=== PATIENT | male | born 1955 | race Caucasian/White ===

== ENCOUNTER 2018-09-28 05:02 | Inpatient (IN) | payer OTHER ==
[2018-09-28] MEDS ORDERED: DILTIAZEM DRIP BOLUS FROM BAG 1 MG SOLN IV ONE (05:19)
[2018-09-28] MEDS: DILTIAZEM 50 MG in SODIUM CHLORIDE 0.9% 40 ML IV SCH ×3 (05:32→20:36)
[2018-09-28] MEDS ORDERED: SODIUM CHLORIDE 0.9% 1,000 ML IV ONE ×2 (05:34→05:44)
[2018-09-28 05:39] LABS: Basophils % (A) 0 %; Eosinophils # (A) 0.1 k/uL (0-0.7); Eosinophils % (A) 3 %; HCT 51.2 % (39.0-53.0); HGB 17.1 gm/dL (13.0-17.5); Lymphocytes # (A) 1.7 k/uL (1.0-4.8); Lymphocytes % (A) 43 %; MCH 30.3 pg (25.0-35.0); MCHC 33.4 g/dL (31.0-37.0); MCV 90.7 fL (80.0-100.0); Mean Platelet Volume 7.3; Monocytes # (A) 0.4 k/uL (0-1.0); Monocytes % (A) 9 %; Neutrophils # (A) 1.7 k/uL (1.3-7.7); Neutrophils % (A) 41 %; Platelet Count 159 k/uL (150-450); RBC 5.64 m/uL (4.30-5.90); RDW 12.9 % (11.5-15.5); WBC 4.1 k/uL (3.8-10.6)
--- NOTE | 2018-09-28 05:44 | ED ---
Arrhythmia/Palpitations HPI - General Chief Complaint: Arrhythmia/Palpitations Stated Complaint: palpitations,dizziness Time Seen by Provider: 09/28/18 05:19 Source: patient Mode of arrival: wheelchair Limitations: no limitations - History of Present Illness Initial Comments: This patient is 63-year-old man who presents to be evaluated for palpitations. The patient states that he had been not feeling like his usual self for the past 3 days. He states he had been coughing. He also was not feeling well so he hadn't really had much to eat or drink since that time . Tonight after coughing episode he noticed that his heart had started racing. Patient denies chest pain, diaphoresis nausea or vomiting. Denies history of arrhythmia. MD Complaint: "heart racing", palpitations Onset/Timin -: hour(s) Context: other (During coughing episode) Associated Symptoms: shortness of breath - Related Data Home Medications Medication Instructions Recorded Confirmed Aspirin EC [Ecotrin Low Dose] 81 mg PO DAILY 09/28/18 09/28/18 Aspirin EC [Ecotrin] 650 mg PO DAILY PRN 09/28/18 09/28/18 Allergies Allergy/AdvReac Type Severity Reaction Status Date / Time bee venom protein (honey bee) Allergy Swelling Verified 09/28/18 07:04 Review of Systems ROS Statement: Those systems with pertinent positive or pertinent negative responses have been documented in the HPI. ROS Other: All systems not noted in ROS Statement are negative. Constitutional: Reports: weakness. Denies: fever, chills Respiratory: Reports: cough, dyspnea. Denies: wheezes, hemoptysis Cardiovascular: Reports: palpitations. Denies: chest pain, edema, syncope Gastrointestinal: Denies: abdominal pain, nausea, vomiting Genitourinary: Denies: dysuria Musculoskeletal: Denies: back pain Skin: Denies: rash Neurological: Denies: headache, weakness, numbness Past Medical History Past Medical History: No Reported History History of Any Multi-Drug Resistant Organisms: None Reported Past Surgical History: Orthopedic Surgery Past Psychological History: No Psychological Hx Reported Smoking Status: Never smoker Past Alcohol Use History: None Reported Past Drug Use History: None Reported General Exam Limitations: no limitations General appearance: alert, in no apparent distress Head exam: Present: atraumatic, normocephalic Eye exam: Present: normal appearance ENT exam: Present: mucous membranes dry Neck exam: Present: normal inspection, full ROM Respiratory exam: Present: normal lung sounds bilaterally. Absent: respiratory distress, wheezes, rales, rhonchi, stridor Cardiovascular Exam: Present: tachycardia, irregular rhythm, normal heart sounds. Absent: systolic murmur, diastolic murmur, rubs, gallop GI/Abdominal exam: Present: soft. Absent: distended, tenderness, guarding, rebound, rigid, mass Extremities exam: Present: normal inspection, normal capillary refill. Absent: pedal edema, calf tenderness Back exam: Present: normal inspection. Absent: CVA tenderness (R), CVA tenderness (L) Neurological exam: Present: alert Skin exam: Present: warm, dry, intact, normal color. Absent: rash Course Vital Signs 09/28/18 09/28/18 09/28/18 05:05 05:13 05:20 Temperature 98.5 F Pulse Rate 57 L 156 H Respiratory 18 30 H 24 Rate Blood Pressure 80/55 88/69 O2 Sat by Pulse 96 89 L Oximetry 09/28/18 09/28/18 09/28/18 05:40 06:00 06:10 Temperature Pulse Rate 105 H 101 H 87 Respiratory 22 18 18 Rate Blood Pressure 95/63 102/75 110/81 O2 Sat by Pulse 97 96 96 Oximetry 09/28/18 09/28/18 09/28/18 06:53 07:00 07:30 Temperature Pulse Rate 118 H 118 H 106 H Respiratory 20 18 18 Rate Blood Pressure 103/65 103/65 111/79 O2 Sat by Pulse 96 93 L 96 Oximetry 09/28/18 09/28/18 09/28/18 08:00 08:30 09:00 Temperature Pulse Rate 104 H 144 H 70 Respiratory 19 18 18 Rate Blood Pressure 103/85 104/65 111/88 O2 Sat by Pulse 93 L 94 L 96 Oximetry 09/28/18 09:30 Temperature Pulse Rate 72 Respiratory 19 Rate Blood Pressure 108/73 O2 Sat by Pulse 96 Oximetry EKG Findings - EKG Results: EKG: interpreted by ERMD, normal axis, normal QRS, normal ST/T EKG shows: atrial fibrillation (Rate approximately 158 bpm) Medical Decision Making - Medical Decision Making Patient's 63-year-old man presenting for evaluation of palpitations and dyspnea , found to have what appears to be new onset of atrial fibrillation and a rapid ventricular rate. Patient started on IV fluids and Cardizem. Patient be admitted for cardiology evaluation. His symptoms have improved. - Lab Data Result diagrams: 09/28/18 05:20 09/28/18 05:20 Lab Results 09/28/18 09/28/18 09/28/18 Range/Units 05:20 05:20 05:20 WBC 4.1 (3.8-10.6) k/uL RBC 5.64 (4.30-5.90) m/uL Hgb 17.1 (13.0-17.5) gm/dL Hct 51.2 (39.0-53.0) % MCV 90.7 (80.0-100.0) fL MCH 30.3 (25.0-35.0) pg MCHC 33.4 (31.0-37.0) g/dL RDW 12.9 (11.5-15.5) % Plt Count 159 (150-450) k/uL Neutrophils % 41 % Lymphocytes % 43 % Monocytes % 9 % Eosinophils % 3 % Basophils % 0 % Neutrophils # 1.7 (1.3-7.7) k/uL Lymphocytes # 1.7 (1.0-4.8) k/uL Monocytes # 0.4 (0-1.0) k/uL Eosinophils # 0.1 (0-0.7) k/uL Basophils # 0.0 (0-0.2) k/uL PT (9.0-12.0) sec INR (<1.2) APTT (22.0-30.0) sec Sodium 139 (137-145) mmol/L Potassium 3.9 (3.5-5.1) mmol/L Chloride 99 (98-107) mmol/L Carbon Dioxide 24 (22-30) mmol/L Anion Gap 16 mmol/L BUN 21 H (9-20) mg/dL Creatinine 1.79 H (0.66-1.25) mg/dL Est GFR (CKD-EPI)AfAm 46 (>60 ml/min/1.73 sqM) Est GFR (CKD-EPI)NonAf 40 (>60 ml/min/1.73 sqM) Glucose 124 H (74-99) mg/dL Calcium 9.3 (8.4-10.2) mg/dL Magnesium 2.2 (1.6-2.3) mg/dL Total Bilirubin 0.5 (0.2-1.3) mg/dL AST 57 (17-59) U/L ALT 57 (21-72) U/L Alkaline Phosphatase 88 (38-126) U/L Total Creatine Kinase 382 H (55-170) U/L CK-MB (CK-2) 1.0 (0.0-2.4) ng/mL CK-MB (CK-2) Rel Index 0.3 Troponin I <0.012 (0.000-0.034) ng/mL Total Protein 8.2 (6.3-8.2) g/dL Albumin 4.7 (3.5-5.0) g/dL TSH 8.700 H (0.465-4.680) mIU/L 09/28/18 Range/Units 05:20 WBC (3.8-10.6) k/uL RBC (4.30-5.90) m/uL Hgb (13.0-17.5) gm/dL Hct (39.0-53.0) % MCV (80.0-100.0) fL MCH (25.0-35.0) pg MCHC (31.0-37.0) g/dL RDW (11.5-15.5) % Plt Count (150-450) k/uL Neutrophils % % Lymphocytes % % Monocytes % % Eosinophils % % Basophils % % Neutrophils # (1.3-7.7) k/uL Lymphocytes # (1.0-4.8) k/uL Monocytes # (0-1.0) k/uL Eosinophils # (0-0.7) k/uL Basophils # (0-0.2) k/uL PT 9.8 (9.0-12.0) sec INR 0.9 (<1.2) APTT 26.5 (22.0-30.0) sec Sodium (137-145) mmol/L Potassium (3.5-5.1) mmol/L Chloride (98-107) mmol/L Carbon Dioxide (22-30) mmol/L Anion Gap mmol/L BUN (9-20) mg/dL Creatinine (0.66-1.25) mg/dL Est GFR (CKD-EPI)AfAm (>60 ml/min/1.73 sqM) Est GFR (CKD-EPI)NonAf (>60 ml/min/1.73 sqM) Glucose (74-99) mg/dL Calcium (8.4-10.2) mg/dL Magnesium (1.6-2.3) mg/dL Total Bilirubin (0.2-1.3) mg/dL AST (17-59) U/L ALT (21-72) U/L Alkaline Phosphatase (38-126) U/L Total Creatine Kinase (55-170) U/L CK-MB (CK-2) (0.0-2.4) ng/mL CK-MB (CK-2) Rel Index Troponin I (0.000-0.034) ng/mL Total Protein (6.3-8.2) g/dL Albumin (3.5-5.0) g/dL TSH (0.465-4.680) mIU/L Critical Care Time Critical Care Time: Yes (40 minutes) Disposition Clinical Impression: Atrial fibrillation, Acute kidney injury Disposition: ADMITTED IP TO THIS HOSP Condition: Fair
[2018-09-28 05:48] LABS: INR 0.9 (<1.2); Partial Thromboplastin Time 26.5 sec (22.0-30.0); Prothrombin Time 9.8 sec (9.0-12.0)
[2018-09-28 05:52] LABS: Albumin 4.7 g/dL (3.5-5.0); Calcium 9.3 mg/dL (8.4-10.2); Magnesium 2.2 mg/dL (1.6-2.3); Potassium 3.9 mmol/L (3.5-5.1); Total Bilirubin 0.5 mg/dL (0.2-1.3); Total Protein 8.2 g/dL (6.3-8.2)
[2018-09-28 05:58] LABS: Creatine Kinase 382 U/L (55-170)
[2018-09-28 06:11] LABS: Troponin I <0.012 ng/mL (0.000-0.034)
--- NOTE | 2018-09-28 06:17 | XR ---
INDICATION: Dysrhythmia COMPARISON: None FINDINGS: Single frontal view demonstrates a normal cardiomediastinal silhouette and normal pulmonary vascularity. There are mild left basilar opacities suggesting subsegmental atelectasis. There is no pleural effusion or pneumothorax. Regional skeleton appears intact. IMPRESSION: Mild left basilar subsegmental atelectasis.
[2018-09-28] MEDS ORDERED: ENOXAPARIN 100 MG/ML SYRINGE SQ STA (06:56)
[2018-09-28] MEDS ORDERED: NITROGLYCERIN SL TABS 0.4 MG TAB SUBLINGUAL PRN (06:56)
[2018-09-28] MEDS: SODIUM CHLORIDE 0.9% 1,000 ML IV SCH ×2 (07:26→16:59)
[2018-09-28 12:39] LABS: Creatine Kinase MB 1.1 ng/mL (0.0-2.4)
[2018-09-28 12:43] LABS: Troponin I 0.049 ng/mL (0.000-0.034)
--- NOTE | 2018-09-28 15:33 | P.HPIM ---
History of Present Illness This is a pleasant 63 years old male with no significant past medical history who presents because of palpitation, patient states that he is having cough with some dark milky phlegm with associated with loss of appetite for the last 4 -5 days. Also he has been feeling dizzy whenever he stands up it's like presyncope and about to fall down due to his lightheadedness. He has urine output and normal bowel movement today. On admission his EKG showing atrial fibrillation with rapid ventricular rate at 158 BPM, his CBC was unremarkable however his creatinine was elevated at 1.79, Review of Systems CONSTITUTIONAL: No fever, no malaise, no fatigue. HEENT: No recent visual problems or hearing problems. Denied any sore throat. CARDIOVASCULAR: No orthopnea, PND, no palpitations, no syncope. PULMONARY: No shortness of breath, no cough, no hemoptysis. GASTROINTESTINAL: No diarrhea, no nausea, no vomiting, no abdominal pain. Normoactive bowel sounds. NEUROLOGICAL: No headaches, no weakness, no numbness. HEMATOLOGICAL: Denies any bleeding or petechiae. GENITOURINARY: Denies any burning micturition, frequency, or urgency. MUSCULOSKELETAL/RHEUMATOLOGICAL: Denies any joint pain, swelling, or any muscle pain. ENDOCRINE: Denies any polyuria or polydipsia. Past Medical History Past Medical History: No Reported History History of Any Multi-Drug Resistant Organisms: None Reported Past Surgical History: Orthopedic Surgery Past Psychological History: No Psychological Hx Reported Smoking Status: Never smoker Past Alcohol Use History: None Reported Past Drug Use History: None Reported Medications and Allergies Home Medications Medication Instructions Recorded Confirmed Type Aspirin EC [Ecotrin Low Dose] 81 mg PO DAILY 09/28/18 09/28/18 History Aspirin EC [Ecotrin] 650 mg PO DAILY PRN 09/28/18 09/28/18 History Allergies Allergy/AdvReac Type Severity Reaction Status Date / Time bee venom protein (honey bee) Allergy Swelling Verified 09/28/18 07:04 Physical Exam Vitals: Vital Signs Temp Pulse Resp BP Pulse Ox 09/28/18 14:21 99.4 F 74 14 111/71 100 09/28/18 09:30 72 19 108/73 96 09/28/18 09:00 70 18 111/88 96 09/28/18 08:30 144 H 18 104/65 94 L 09/28/18 08:00 104 H 19 103/85 93 L 09/28/18 07:30 106 H 18 111/79 96 09/28/18 07:00 118 H 18 103/65 93 L 09/28/18 06:53 118 H 20 103/65 96 09/28/18 06:10 87 18 110/81 96 09/28/18 06:00 101 H 18 102/75 96 09/28/18 05:40 105 H 22 95/63 97 09/28/18 05:20 156 H 24 88/69 09/28/18 05:13 30 H 89 L 09/28/18 05:05 98.5 F 57 L 18 80/55 96 Intake and Output 09/28/18 09/28/18 09/28/18 06:59 14:59 22:59 Other: Weight 95.254 kg GENERAL: The patient is alert and oriented x3, not in any acute distress. Well developed, well nourished. HEENT: Pupils are round and equally reacting to light. EOMI. No scleral icterus. No conjunctival pallor. Normocephalic, atraumatic. No pharyngeal erythema. No thyromegaly. CARDIOVASCULAR: S1 and S2 present. No murmurs, rubs, or gallops. PULMONARY: Chest is clear to auscultation, no wheezing or crackles. ABDOMEN: Soft, nontender, nondistended, normoactive bowel sounds. No palpable organomegaly. MUSCULOSKELETAL: No joint swelling or deformity. EXTREMITIES: No cyanosis, clubbing, or pedal edema. NEUROLOGICAL: Gross neurological examination did not reveal any focal deficits. SKIN: No rashes. Results CBC & Chem 7: 09/28/18 05:20 09/28/18 05:20 Labs: Abnormal Lab Results - Last 24 Hours (Table) 09/28/18 09/28/18 09/28/18 Range/Units 05:20 05:20 05:20 BUN 21 H (9-20) mg/dL Creatinine 1.79 H (0.66-1.25) mg/dL Glucose 124 H (74-99) mg/dL Total Creatine Kinase 382 H (55-170) U/L Troponin I (0.000-0.034) ng/mL TSH 8.700 H 8.530 H (0.465-4.680) mIU/L 09/28/18 Range/Units 11:05 BUN (9-20) mg/dL Creatinine (0.66-1.25) mg/dL Glucose (74-99) mg/dL Total Creatine Kinase 420 H (55-170) U/L Troponin I 0.049 H* (0.000-0.034) ng/mL TSH (0.465-4.680) mIU/L Assessment and Plan Assessment: Atrial fibrillation's with a rapid ventricular rate Acute kidney injury unknown baseline Upper respiratory tract infection. pre-Syncope/dizziness, mostly related to above Plan: This is a pleasant 63 years old male who presents because of atrial fibrillation and acute kidney injury. Will call cardiology consult and continue with IV fluids. Check influenza swab. Labs and medication were reviewed.. Continue same treatment. Continue with symptomatic treatment. Resume home medication. Monitor lytes and vitals. DVT and GI prophylaxis. Further recommendations of the clinical course of the patient DVT prophylaxis: Subcutaneous heparin GI Prophylaxis: Pepcid PT/OT: Pending Prognosis is guarded
[2018-09-28 19:59] LABS: Creatine Kinase MB 0.6 ng/mL (0.0-2.4); Troponin I 0.065 ng/mL (0.000-0.034)
[2018-09-28] MEDS: OSELTAMIVIR 60 MG/10 ML ORAL SYRINGE PO SCH (21:49)
[2018-09-28] MEDS ORDERED: ACETAMINOPHEN TAB 325 MG TAB PO PRN (22:47)
[2018-09-29] MEDS: SODIUM CHLORIDE 0.9% 1,000 ML IV SCH ×2 (04:00→17:31)
[2018-09-29 07:45] LABS: Basophils % (A) 1 %; Eosinophils # (A) 0.1 k/uL (0-0.7); Eosinophils % (A) 2 %; HCT 40.9 % (39.0-53.0); Lymphocytes # (A) 1.5 k/uL (1.0-4.8); Lymphocytes % (A) 42 %; MCH 29.7 pg (25.0-35.0); MCHC 32.6 g/dL (31.0-37.0); MCV 91.1 fL (80.0-100.0); Mean Platelet Volume 6.7; Monocytes # (A) 0.3 k/uL (0-1.0); Monocytes % (A) 8 %; Neutrophils # (A) 1.6 k/uL (1.3-7.7); Neutrophils % (A) 45 %; Platelet Count 130 k/uL (150-450); RBC 4.48 m/uL (4.30-5.90); RDW 12.9 % (11.5-15.5); WBC 3.6 k/uL (3.8-10.6)
[2018-09-29 07:55] LABS: Anion Gap 7 mmol/L; Blood Urea Nitrogen 12 mg/dL (9-20); Carbon Dioxide 23 mmol/L (22-30); Chloride 109 mmol/L (98-107); Cholesterol 172 mg/dL (<200); Glucose 100 mg/dL (74-99); HDL Cholesterol 25 mg/dL (40-60); LDL Cholesterol,Calculated 123 mg/dL (0-99); Sodium 139 mmol/L (137-145); Triglycerides 120 mg/dL (<150)
[2018-09-29 07:58] LABS: HGB 13.3 gm/dL (13.0-17.5)
[2018-09-29] MEDS: ASPIRIN 325 MG TAB PO SCH (08:12)
--- NOTE | 2018-09-29 09:42 | P.CONS ---
History of Present Illness - Reason for Consult Consult date: 09/29/18 Positive influenza A - History of Present Illness This is a 63-year-old male gives history of having onset of severe cough on Wednesday. He states he was exposed to his daughter at [place] who was treated for influenza. He states that his cough continued to worsen and yesterday he developed palpitations. He felt like when he stood up he was going to pass out. He denies having any significant muscle aches. Patient came into [facility] emergency center was found to have a temperature max of 101.5, hypotension and pulse ox of 89%. Influenza A testing was positive , white count 4.1, BUN 21 creatinine 1.79. Troponins were 0.012, 0.049 and 0.065. TSH 8.530. EKG was new onset of atrial fibrillation RVR. Chest x-ray showed mild left basilar subsegmental atelectasis. Patient was admitted to the selective care unit and consult was also admitted for cardiology. Patient was started on a Cardizem drip and he is now in a sinus rhythm. Patient states his coughing has improved this morning but he didn't cough throughout the night. He denies any palpitations at this time. He has had decreased appetite and not had a full meal since Wednesday. He states he is also not been drinking very much at home. Patient states that he took his to the clinic on Wednesday for same symptoms and she was given antibiotics, medication for dizziness and a nasal spray. She apparently was not tested for influenza and did not receive antiviral medication. Review of Systems All systems: negative Constitutional: Reports fatigue, Reports lethargy, Reports malaise, Reports poor appetite, Reports weakness, Denies chills, Denies fever Eyes: denies blurred vision, denies pain Ears, nose, mouth and throat: Reports vertigo, Denies dental pain, Denies headache, Denies mouth pain, Denies nasal congestion, Denies sore throat Cardiovascular: Reports lightheadedness, Denies chest pain, Denies shortness of breath, Denies syncope Respiratory: Reports cough, Reports cough with sputum, Reports dyspnea, Denies excessive sputum, Denies hemoptysis, Denies home oxygen, Denies wheezing Gastrointestinal: Reports loss of appetite, Denies abdominal pain, Denies diarrhea, Denies nausea, Denies vomiting Genitourinary: Denies dysuria, Denies urinary frequency Musculoskeletal: Denies frequent falls, Denies gait dysfunction, Denies myalgias Integumentary: Denies pruritus, Denies rash, Denies wounds Neurological: Denies change in mentation, Denies confusion, Denies gait dysfunction, Denies numbness, Denies weakness Psychiatric: Denies anxiety, Denies depression Endocrine: Denies fatigue, Denies weight change Past Medical History Past Medical History: No Reported History Additional Past Medical History / Comment(s): palpatations, past kideny stones, gout History of Any Multi-Drug Resistant Organisms: None Reported Past Surgical History: Orthopedic Surgery Additional Past Surgical History / Comment(s): rt knee arthroscopy, colonoscopy Past Anesthesia/Blood Transfusion Reactions: Motion Sickness Additional Past Anesthesia/Blood Transfusion Reaction / Comm: pt stated has never recieved any blood" Smoking Status: Never smoker Additional Past Alcohol Use History / Comment(s): Patient has no history of tobacco use. He denies any marijuana, street drug or alcohol use. He lives at home with his . He is retired [employer]. - Past Family History Mother Family Medical History: Diabetes Mellitus Father Additional Family Medical History / Comment(s): from black lung disease Medications and Allergies Home Medications Medication Instructions Recorded Confirmed Type Aspirin EC [Ecotrin Low Dose] 81 mg PO DAILY 09/28/18 09/28/18 History Aspirin EC [Ecotrin] 650 mg PO DAILY PRN 09/28/18 09/28/18 History Allergies Allergy/AdvReac Type Severity Reaction Status Date / Time bee venom protein (honey bee) Allergy Swelling Verified 09/28/18 07:04 Physical Exam Vitals: Vital Signs Temp Pulse Pulse Resp BP BP Pulse Ox 09/29/18 06:55 98.5 F 09/29/18 04:00 101.5 F H 78 18 107/55 93 L 09/29/18 03:39 18 09/29/18 00:00 71 18 09/28/18 23:21 99.8 F H 71 18 124/62 93 L 09/28/18 20:19 99.7 F H 73 18 103/59 95 09/28/18 19:00 77 20 117/68 09/28/18 18:00 77 20 132/59 97 09/28/18 17:00 70 20 101/63 97 09/28/18 16:00 19 110/63 95 09/28/18 15:00 78 19 109/69 09/28/18 14:21 99.4 F 74 14 111/71 100 09/28/18 14:00 72 20 114/68 95 09/28/18 13:01 73 15 106/70 95 09/28/18 12:00 74 20 118/73 97 09/28/18 10:00 80 20 100/62 09/28/18 09:30 72 19 108/73 96 09/28/18 09:00 70 18 111/88 96 Intake and Output 09/28/18 09/29/18 09/29/18 22:59 06:59 14:59 Intake Total 300 750 Balance 300 750 Intake: Intake, IV Titration 50 300 Amount Diltiazem 50 mg In Sodium 50 Chloride 0.9% 40 ml @ 5 MG/HR 5 mls/hr IV .Q10H MISSAEL Rx#:[id number] Sodium Chloride 0.9% 1, 300 000 ml @ 100 mls/hr IV . Q10H MISSAEL Rx#:[id number] Oral 250 450 Other: Voiding Method Toilet # Voids 1 Weight 94.7 kg Gen: This is a 63-year-old male. He is sitting up in bed and appears to be comfortable and in no acute distress. No respiratory distress noted. Occasional hacking cough noted. HEENT: Head is atraumatic, normocephalic. Pupils equal, round. Sclerae is anicteric. Conjunctiva pink. Mucous members of the mouth are moist. No thrush noted. NECK: Supple. No JVD. No lymphadenopathy. No thyromegaly. LUNGS: Clear to auscultation. No wheezes or rhonchi. No intercostal retractions. HEART: Regular rate and rhythm. No murmur. ABDOMEN: Soft. Bowel sounds are present. No masses. No tenderness. EXTREMITIES: No pedal edema. No calf tenderness. Dorsalis pedis is +2 bilaterally. NEUROLOGICAL: Patient is awake, alert and oriented x3. Cranial nerves 2 through 12 are grossly intact. Results Results: Laboratory Results WBC 3.6 k/uL (3.8-10.6) L 09/29/18 07:17 RBC 4.48 m/uL (4.30-5.90) 09/29/18 07:17 Hgb 13.3 gm/dL (13.0-17.5) D 09/29/18 07:17 Hct 40.9 % (39.0-53.0) 09/29/18 07:17 MCV 91.1 fL (80.0-100.0) 09/29/18 07:17 MCH 29.7 pg (25.0-35.0) 09/29/18 07:17 MCHC 32.6 g/dL (31.0-37.0) 09/29/18 07:17 RDW 12.9 % (11.5-15.5) 09/29/18 07:17 Plt Count 130 k/uL (150-450) L 09/29/18 07:17 Neutrophils % 45 % 09/29/18 07:17 Lymphocytes % 42 % 09/29/18 07:17 Monocytes % 8 % 09/29/18 07:17 Eosinophils % 2 % 09/29/18 07:17 Basophils % 1 % 09/29/18 07:17 Neutrophils # 1.6 k/uL (1.3-7.7) 09/29/18 07:17 Lymphocytes # 1.5 k/uL (1.0-4.8) 09/29/18 07:17 Monocytes # 0.3 k/uL (0-1.0) 09/29/18 07:17 Eosinophils # 0.1 k/uL (0-0.7) 09/29/18 07:17 Basophils # 0.0 k/uL (0-0.2) 09/29/18 07:17 PT 9.8 sec (9.0-12.0) 09/28/18 05:20 INR 0.9 (<1.2) 09/28/18 05:20 APTT 26.5 sec (22.0-30.0) 09/28/18 05:20 Sodium 139 mmol/L (137-145) 09/29/18 07:17 Potassium 4.0 mmol/L (3.5-5.1) 09/29/18 07:17 Chloride 109 mmol/L (98-107) H 09/29/18 07:17 Carbon Dioxide 23 mmol/L (22-30) 09/29/18 07:17 Anion Gap 7 mmol/L 09/29/18 07:17 BUN 12 mg/dL (9-20) 09/29/18 07:17 Creatinine 0.94 mg/dL (0.66-1.25) 09/29/18 07:17 Est GFR (CKD-EPI)AfAm >90 (>60 ml/min/1.73 sqM) 09/29/18 07:17 Est GFR (CKD-EPI)NonAf 86 (>60 ml/min/1.73 sqM) 09/29/18 07:17 Glucose 100 mg/dL (74-99) H 09/29/18 07:17 Calcium 8.0 mg/dL (8.4-10.2) L 09/29/18 07:17 Magnesium 2.2 mg/dL (1.6-2.3) 09/28/18 05:20 Total Bilirubin 0.5 mg/dL (0.2-1.3) 09/28/18 05:20 AST 57 U/L (17-59) 09/28/18 05:20 ALT 57 U/L (21-72) 09/28/18 05:20 Alkaline Phosphatase 88 U/L (38-126) 09/28/18 05:20 Total Creatine Kinase 463 U/L (55-170) H 09/28/18 18:33 CK-MB (CK-2) 0.6 ng/mL (0.0-2.4) 09/28/18 18:33 CK-MB (CK-2) Rel Index 0.1 09/28/18 18:33 Troponin I 0.065 ng/mL (0.000-0.034) H* 09/28/18 18:33 Total Protein 8.2 g/dL (6.3-8.2) 09/28/18 05:20 Albumin 4.7 g/dL (3.5-5.0) 09/28/18 05:20 Triglycerides 120 mg/dL (<150) 09/29/18 07:17 Cholesterol 172 mg/dL (<200) 09/29/18 07:17 LDL Cholesterol, Calc 123 mg/dL (0-99) H 09/29/18 07:17 HDL Cholesterol 25 mg/dL (40-60) L 09/29/18 07:17 TSH 8.530 mIU/L (0.465-4.680) H 09/28/18 05:20 Influenza Type A RNA Detected (Not Detectd) H 09/28/18 17:15 Influenza Type B (PCR) Not Detected (Not Detectd) 09/28/18 17:15 CBC & Chem 7: 09/30/18 06:07 09/29/18 07:17 Labs: Abnormal Lab Results - Last 24 Hours (Table) 09/28/18 09/28/18 09/28/18 Range/Units 05:20 11:05 17:15 WBC (3.8-10.6) k/uL Plt Count (150-450) k/uL Chloride (98-107) mmol/L Glucose (74-99) mg/dL Calcium (8.4-10.2) mg/dL Total Creatine Kinase 420 H (55-170) U/L Troponin I 0.049 H* (0.000-0.034) ng/mL LDL Cholesterol, Calc (0-99) mg/dL HDL Cholesterol (40-60) mg/dL TSH 8.530 H (0.465-4.680) mIU/L Influenza Type A RNA Detected H (Not Detectd) 09/28/18 09/29/18 09/29/18 Range/Units 18:33 07:17 07:17 WBC 3.6 L (3.8-10.6) k/uL Plt Count 130 L (150-450) k/uL Chloride 109 H (98-107) mmol/L Glucose 100 H (74-99) mg/dL Calcium 8.0 L (8.4-10.2) mg/dL Total Creatine Kinase 463 H (55-170) U/L Troponin I 0.065 H* (0.000-0.034) ng/mL LDL Cholesterol, Calc 123 H (0-99) mg/dL HDL Cholesterol 25 L (40-60) mg/dL TSH (0.465-4.680) mIU/L Influenza Type A RNA (Not Detectd) Assessment and Plan Plan: This is a 63-year-old male who presents to hospital with influenza a, sepsis, A. fib with RVR, acute kidney injury. The patient has been admitted to the selective care unit. He is currently on Tamiflu which will be continued but dose will be adjusted. Cardiology is on consult regarding new onset A. fib. Patient has been encouraged to have his obtain Tamiflu from her PCP. Continue supportive care. Further recommendations as patient progresses. The above dictated assessment and findings were discussed with Dr. Gaston. The impression and plan of care have been directed as dictated. Sherry Marc nurse practitioner acting as scribe for Dr. Gaston.
[2018-09-29] MEDS: OSELTAMIVIR 60 MG/10 ML ORAL SYRINGE PO SCH (10:22)
--- NOTE | 2018-09-29 13:59 | ECHOF ---
Referral Reason:new onset afib MEASUREMENTS -------- HEIGHT: 182.9 cm WEIGHT: 95.3 kg BP: RVIDd: 2.7 cm (< 3.3) IVSd: 1.2 cm (0.6 - 1.1) LVIDd: 3.7 cm (3.9 - 5.3) LVPWd: 1.3 cm (0.6 - 1.1) IVSs: 1.6 cm LVIDs: 3.2 cm LVPWs: 1.2 cm LA Diam: 3.9 cm (2.7 - 3.8) LAESV Index (A-L): 23.39 ml/m Ao Diam: 3.1 cm (2.0 - 3.7) AV Cusp: 2.0 cm (1.5 - 2.6) LA Diam: 3.8 cm (2.7 - 3.8) MV EXCURSION: 26.030 mm (> 18.000) MV EF SLOPE: 121 mm/s (70 - 150) EPSS: 0.3 cm MV E Tommy: 0.69 m/s MV DecT: 146 ms MV A Tommy: 0.47 m/s MV E/A Ratio: 1.48 RAP: 5.00 mmHg RVSP: 10.09 mmHg FINDINGS -------- Undetermined rhythm. This was a technically adequate study. The left ventricular size is normal. There is mild concentric left ventricular hypertrophy. Overa ll left ventricular systolic function is normal with, an EF between 55 - 60 %. The right ventricle is normal in size. The left atrial size is normal. The right atrial size is normal. The aortic valve is trileaflet, and appears structurally normal. No aortic stenosis or regurgitation. Mild mitral annular calcification present. Mild mitral regurgitation is present. Mild tricuspid regurgitation present. There is no evidence of pulmonary hypertension. The right v entricular systolic pressure, as measured by Doppler, is 10.09mmHg. There is no pulmonic regurgitation present. The aortic root size is normal. There is no pericardial effusion. CONCLUSIONS -------- 1. The left ventricular size is normal. 2. There is mild concentric left ventricular hypertrophy. 3. Overall left ventricular systolic function is normal with, an EF between 55 - 60 %. 4. The right ventricle is normal in size. 5. The left atrial size is normal. 6. The right atrial size is normal. 7. The aortic valve is trileaflet, and appears structurally normal. No aortic stenosis or regurgitati on. 8. Mild mitral annular calcification present. 9. Mild mitral regurgitation is present. 10. Mild tricuspid regurgitation present. 11. There is no evidence of pulmonary hypertension. 12. The right ventricular systolic pressure, as measured by Doppler, is 10.09mmHg. 13. There is no pulmonic regurgitation present. 14. The aortic root size is normal. 15. There is no pericardial effusion. [employer] TEACHER: Cherrie Avendaño RDCS
--- NOTE | 2018-09-29 14:47 | P.PN ---
Subjective This is a pleasant 63 years old male with no significant past medical history who presents because of palpitation, patient states that he is having cough with some dark milky phlegm with associated with loss of appetite for the last 4 -5 days. Also he has been feeling dizzy whenever he stands up it's like presyncope and about to fall down due to his lightheadedness. He has urine output and normal bowel movement today. On admission his EKG showing atrial fibrillation with rapid ventricular rate at 158 BPM, his CBC was unremarkable however his creatinine was elevated at 1.79, 09/29/2018 Patient still complains from abdominal pain although she says it's the same, she still have some nausea and vomiting, she vomited about 3 times today and its bile. However her bowel movement is improvement and she has little amounts of stool today. However abdominal exam looks benign with no rebound tenderness or guarding. ID team are following the case and she is currently on Flagyl. We will check abdominal x-ray. Objective - Vital Signs Vital signs: Vital Signs Temp 97.8 F 09/29/18 12:00 Pulse 68 09/29/18 12:00 Resp 16 09/29/18 12:00 BP 112/56 09/29/18 12:00 Pulse Ox 92 L 09/29/18 12:00 Intake & Output 09/28/18 09/29/18 09/29/18 18:59 06:59 18:59 Intake Total 50 1000 222 Balance 50 1000 222 Weight 94.7 kg Intake: Intake, IV Titration 50 300 Amount Diltiazem 50 mg In Sodium 50 Chloride 0.9% 40 ml @ 5 MG/HR 5 mls/hr IV .Q10H [facility] Rx#:[id number] Sodium Chloride 0.9% 1, 300 000 ml @ 100 mls/hr IV . Q10H [facility] Rx#:[id number] Oral 700 222 Other: Voiding Method Toilet Toilet # Voids 1 - Exam GENERAL: The patient is alert and oriented x3, not in any acute distress. Well developed, well nourished. HEENT: Pupils are round and equally reacting to light. EOMI. No scleral icterus. No conjunctival pallor. Normocephalic, atraumatic. No pharyngeal erythema. No thyromegaly. CARDIOVASCULAR: S1 and S2 present. No murmurs, rubs, or gallops. PULMONARY: Chest is clear to auscultation, no wheezing or crackles. -ABDOMEN: Soft, generalized abdominal tenderness, more on the left side. nondistended, normoactive bowel sounds. No palpable organomegaly. MUSCULOSKELETAL: No joint swelling or deformity. EXTREMITIES: No cyanosis, clubbing, or pedal edema. NEUROLOGICAL: Gross neurological examination did not reveal any focal deficits. SKIN: No rashes. - Labs CBC & Chem 7: 09/29/18 07:17 09/29/18 07:17 Labs: Abnormal Lab Results - Last 24 Hours (Table) 09/28/18 09/28/18 09/29/18 Range/Units 17:15 18:33 07:17 WBC (3.8-10.6) k/uL Plt Count (150-450) k/uL Chloride 109 H (98-107) mmol/L Glucose 100 H (74-99) mg/dL Calcium 8.0 L (8.4-10.2) mg/dL Total Creatine Kinase 463 H (55-170) U/L Troponin I 0.065 H* (0.000-0.034) ng/mL LDL Cholesterol, Calc 123 H (0-99) mg/dL HDL Cholesterol 25 L (40-60) mg/dL Influenza Type A RNA Detected H (Not Detectd) 09/29/18 Range/Units 07:17 WBC 3.6 L (3.8-10.6) k/uL Plt Count 130 L (150-450) k/uL Chloride (98-107) mmol/L Glucose (74-99) mg/dL Calcium (8.4-10.2) mg/dL Total Creatine Kinase (55-170) U/L Troponin I (0.000-0.034) ng/mL LDL Cholesterol, Calc (0-99) mg/dL HDL Cholesterol (40-60) mg/dL Influenza Type A RNA (Not Detectd) Assessment and Plan Assessment: Gastroenteritis-like illness Atrial fibrillation's with a rapid ventricular rate Acute kidney injury unknown baseline, resolved Upper respiratory tract infection. pre-Syncope/dizziness, mostly related to above. Improvement Plan: This is a pleasant 63 years old male who presents because of atrial fibrillation and acute kidney injury. Will call cardiology consult and continue with IV fluids. Check influenza swab. Labs and medication were reviewed.. Continue same treatment. Continue with symptomatic treatment. Resume home medication. Monitor lytes and vitals. DVT and GI prophylaxis. Further recommendations of the clinical course of the patient DVT prophylaxis: Subcutaneous heparin GI Prophylaxis: Pepcid Prognosis is guarded
--- NOTE | 2018-09-29 14:58 | P.PN ---
Subjective This is a pleasant 63 years old male with no significant past medical history who presents because of palpitation, patient states that he is having cough with some dark milky phlegm with associated with loss of appetite for the last 4 -5 days. Also he has been feeling dizzy whenever he stands up it's like presyncope and about to fall down due to his lightheadedness. He has urine output and normal bowel movement today. On admission his EKG showing atrial fibrillation with rapid ventricular rate at 158 BPM, his CBC was unremarkable however his creatinine was elevated at 1.79, 09/29/2018 Patient feels better today, his cuff, less severe as and more dry. No more dizziness or chest pain or dyspnea. ID team saw the patient and the recommendation is appreciated. However patient is still have fever today at 100.2. However heart rate is more controlled. Cardiology been consulted Objective - Vital Signs Vital signs: Vital Signs Temp 97.8 F 09/29/18 12:00 Pulse 68 09/29/18 12:00 Resp 16 09/29/18 12:00 BP 112/56 09/29/18 12:00 Pulse Ox 92 L 09/29/18 12:00 Intake & Output 09/28/18 09/29/18 09/29/18 18:59 06:59 18:59 Intake Total 50 1000 222 Balance 50 1000 222 Weight 94.7 kg Intake: Intake, IV Titration 50 300 Amount Diltiazem 50 mg In Sodium 50 Chloride 0.9% 40 ml @ 5 MG/HR 5 mls/hr IV .Q10H [facility] Rx#:[id number] Sodium Chloride 0.9% 1, 300 000 ml @ 100 mls/hr IV . Q10H [facility] Rx#:[id number] Oral 700 222 Other: Voiding Method Toilet Toilet # Voids 1 - Exam GENERAL: The patient is alert and oriented x3, not in any acute distress. Well developed, well nourished. HEENT: Pupils are round and equally reacting to light. EOMI. No scleral icterus. No conjunctival pallor. Normocephalic, atraumatic. No pharyngeal erythema. No thyromegaly. CARDIOVASCULAR: S1 and S2 present. No murmurs, rubs, or gallops. PULMONARY: Chest is clear to auscultation, no wheezing or crackles. -ABDOMEN: Soft, generalized abdominal tenderness, more on the left side. nondistended, normoactive bowel sounds. No palpable organomegaly. MUSCULOSKELETAL: No joint swelling or deformity. EXTREMITIES: No cyanosis, clubbing, or pedal edema. NEUROLOGICAL: Gross neurological examination did not reveal any focal deficits. SKIN: No rashes. - Labs CBC & Chem 7: 09/29/18 07:17 09/29/18 07:17 Labs: Abnormal Lab Results - Last 24 Hours (Table) 09/28/18 09/28/18 09/29/18 Range/Units 17:15 18:33 07:17 WBC (3.8-10.6) k/uL Plt Count (150-450) k/uL Chloride 109 H (98-107) mmol/L Glucose 100 H (74-99) mg/dL Calcium 8.0 L (8.4-10.2) mg/dL Total Creatine Kinase 463 H (55-170) U/L Troponin I 0.065 H* (0.000-0.034) ng/mL LDL Cholesterol, Calc 123 H (0-99) mg/dL HDL Cholesterol 25 L (40-60) mg/dL Influenza Type A RNA Detected H (Not Detectd) 09/29/18 Range/Units 07:17 WBC 3.6 L (3.8-10.6) k/uL Plt Count 130 L (150-450) k/uL Chloride (98-107) mmol/L Glucose (74-99) mg/dL Calcium (8.4-10.2) mg/dL Total Creatine Kinase (55-170) U/L Troponin I (0.000-0.034) ng/mL LDL Cholesterol, Calc (0-99) mg/dL HDL Cholesterol (40-60) mg/dL Influenza Type A RNA (Not Detectd) Assessment and Plan Assessment: Atrial fibrillation's with a rapid ventricular rate Acute kidney injury unknown baseline, resolved Upper respiratory tract infection. Secondary to influenza infection treated on Tamiflu pre-Syncope/dizziness, mostly related to above. Improvement Plan: This is a pleasant 63 years old male who presents because of atrial fibrillation and acute kidney injury. Will call cardiology consult and continue with IV fluids. Check influenza swab. Labs and medication were reviewed.. Continue same treatment. Continue with symptomatic treatment. Resume home medication. Monitor lytes and vitals. DVT and GI prophylaxis. Further recommendations of the clinical course of the patient DVT prophylaxis: Subcutaneous heparin GI Prophylaxis: Pepcid Prognosis is guarded
[2018-09-29] MEDS: DILTIAZEM 50 MG in SODIUM CHLORIDE 0.9% 40 ML IV SCH (15:44)
[2018-09-29] MEDS: OSELTAMIVIR 75 MG CAP PO SCH ×2 (15:44→21:22)
[2018-09-29] MEDS: FAMOTIDINE 20 MG/2 ML VIAL IV SCH ×2 (17:13→21:21)
[2018-09-29] MEDS: HEPARIN SODIUM,PORCINE 5,000 UNIT/ML 1 ML VIAL SQ SCH ×2 (17:14→21:21)
--- NOTE | 2018-09-30 | P.CON ---
Consult Note - . Consult date: 09/29/18 Assessment/Plan:: This is a 63-year-old male gives history of having onset of severe cough on Wednesday. He states he was exposed to his daughter at [employer] who was treated for influenza. He states that his cough continued to worsen and yesterday he developed palpitations. He felt like when he stood up he was going to pass out. He denies having any significant muscle aches. Patient came into [facility] emergency center was found to have a temperature max of 101.5, hypotension and pulse ox of 89%. Influenza A testing was positive , white count 4.1, BUN 21 creatinine 1.79. Troponins were 0.012, 0.049 and 0.065. TSH 8.530. EKG was new onset of atrial fibrillation RVR. Chest x-ray showed mild left basilar subsegmental atelectasis. Patient was admitted to the selective care unit and consult was also admitted for cardiology. Patient was started on a Cardizem drip and he is now in a sinus rhythm. Patient states his coughing has improved this morning but he didn't cough throughout the night. He denies any palpitations at this time. He has had decreased appetite and not had a full meal since Wednesday. He states he is also not been drinking very much at home. Patient states that he took his to the clinic on Wednesday for same symptoms and she was given antibiotics, medication for dizziness and a nasal spray. She apparently was not tested for influenza and did not receive antiviral medication. Please see the consult note is dictated by nurse practitioner Mrs. Sherry Marc. This pleasant 63-year-old male with a started feels somewhat better. He does have a known history of palpitations but not of known atrial fibrillation. Cardiology intervention is in process he will determine transition to oral medications and plan for antiarrhythmic and anticoagulation for home setting. At this time he has no evidence of any renal failure in the Tamiflu is adjusted to full adult dose planning tendinosis. Influenza A is likely responsible for his symptoms and likely resulted in the onset of atrial fibrillation with underlying viral infection and the coughing [facility] since that he was started to suffer from. Before she is feeling considerably better we'll continue supportive care. I agree with evaluation, assessment and plan is dictated by nurse practitioner Mrs. Sherry Marc.
[2018-09-30] MEDS: DILTIAZEM 50 MG in SODIUM CHLORIDE 0.9% 40 ML IV SCH (01:53)
[2018-09-30] MEDS: SODIUM CHLORIDE 0.9% 1,000 ML IV SCH (02:01)
[2018-09-30 06:55] LABS: Basophils % (A) 1 %; Eosinophils # (A) 0.1 k/uL (0-0.7); Eosinophils % (A) 4 %; HCT 40.1 % (39.0-53.0); HGB 13.3 gm/dL (13.0-17.5); Lymphocytes # (A) 2.1 k/uL (1.0-4.8); Lymphocytes % (A) 62 %; MCH 29.9 pg (25.0-35.0); MCHC 33.1 g/dL (31.0-37.0); MCV 90.5 fL (80.0-100.0); Mean Platelet Volume 7.3; Monocytes # (A) 0.2 k/uL (0-1.0); Monocytes % (A) 5 %; Neutrophils # (A) 0.9 k/uL (1.3-7.7); Neutrophils % (A) 25 %; Platelet Count 122 k/uL (150-450); RBC 4.43 m/uL (4.30-5.90); WBC 3.4 k/uL (3.8-10.6)
[2018-09-30 08:06] LABS: Anisocytosis (M) Present
[2018-09-30] MEDS: ASPIRIN 325 MG TAB PO SCH (08:46)
[2018-09-30] MEDS: FAMOTIDINE 20 MG/2 ML VIAL IV SCH (08:46)
[2018-09-30] MEDS: HEPARIN SODIUM,PORCINE 5,000 UNIT/ML 1 ML VIAL SQ SCH (08:46)
[2018-09-30] MEDS: OSELTAMIVIR 75 MG CAP PO SCH (08:46)
--- NOTE | 2018-09-30 10:28 | P.CRDCN ---
<Alisson Quevedo E - Last Filed: 09/30/18 10:13> History of Present Illness Consult date: 09/30/18 Requesting physician: Ismael Barba Consult reason: atrial fibrillation Chief complaint: Palpitations, productive cough History of present illness: This is a 63-year-old gentleman with no prior documented history of hypertension, no diabetes, no hyperlipidemia, nonsmoker. He presented to the hospital with symptoms of palpitations, he also had been having a productive cough of dark sputum and having significant fatigue, decreased appetite. Patient was quite dizzy and states that he nearly passed out. On presentation here patient was found to be positive for influenza A. EKG on arrival here showed atrial fibrillation with a rapid ventricular response. White blood cell count 3.4, hemoglobin 13.3, platelet count 122. Sodium 139, potassium 4.0, BUN 12 and creatinine 0.9 this morning on arrival here the patient's BUN was 21 and creatinine was 1.7. Troponins 0.012, 0.049, 0.065. TSH level 8.7. Patient was initiated on IV Cardizem along with subcu heparin. He has since converted to normal sinus rhythm and remains in a normal sinus rhythm this morning. According to the patient, he does get palpitations off and on which she has been experiencing for years. In 2012 he states that he was in [place], had persistent palpitations at that time and was evaluated by cardiology. On his arrival to the emergency room on that episode he had converted to normal sinus rhythm by the time he arrived there. Since 2013 he states that he has occasional palpitations but has never had a sustained episode of palpitations until this admission. I did have a discussion with him this morning regarding anticoagulation. Echocardiogram with Doppler study revealed an ejection fraction of 55-60%. At the time of my examination this morning, patient is sitting up in his chair at bedside, he states that his appetite is significantly improved and overall he's starting to feel much better. Past Medical History Past Medical History: No Reported History Additional Past Medical History / Comment(s): palpatations, past kideny stones, gout History of Any Multi-Drug Resistant Organisms: None Reported Past Surgical History: Orthopedic Surgery Additional Past Surgical History / Comment(s): rt knee arthroscopy, colonoscopy Past Anesthesia/Blood Transfusion Reactions: Motion Sickness Additional Past Anesthesia/Blood Transfusion Reaction / Comment(s): pt stated has never recieved any blood" Smoking Status: Never smoker Additional Past Alcohol Use History / Comment(s): Patient has no history of tobacco use. He denies any marijuana, street drug or alcohol use. He lives at home with his . He is retired [employer]. - Past Family History Mother Family Medical History: Diabetes Mellitus Father Additional Family Medical History / Comment(s): from black lung disease Medications and Allergies Home Medications Medication Instructions Recorded Confirmed Type Aspirin EC [Ecotrin Low Dose] 81 mg PO DAILY 09/28/18 09/28/18 History Aspirin EC [Ecotrin] 650 mg PO DAILY PRN 09/28/18 09/28/18 History Allergies Allergy/AdvReac Type Severity Reaction Status Date / Time bee venom protein (honey bee) Allergy Swelling Verified 09/28/18 07:04 Physical Exam Vitals: Vital Signs Temp Pulse Resp BP Pulse Ox 09/30/18 04:45 64 15 106/55 96 09/30/18 01:15 98.1 F 69 16 135/73 94 L 09/29/18 21:30 98 09/29/18 21:20 98.5 F 70 17 118/78 96 09/29/18 16:00 98.4 F 69 14 124/76 94 L 09/29/18 12:00 97.8 F 68 16 112/56 92 L 09/29/18 11:25 98.2 F Intake and Output 09/29/18 09/30/18 09/30/18 22:59 06:59 14:59 Intake Total 1680 1000 Balance 1680 1000 Intake: Intake, IV Titration 800 1000 Amount Sodium Chloride 0.9% 1, 800 1000 000 ml @ 100 mls/hr IV . Q10H [facility] Rx#:[id number] Oral 880 Other: Voiding Method Toilet Toilet # Voids 1 3 Weight 94.5 kg PHYSICAL EXAMINATION: GENERAL: This is a 63-year-old gentleman in no acute distress at the time of my examination HEENT: Head is atraumatic, normocephalic. Pupils equal, round. Sclera anicteric. Conjunctiva are clear. Mucous membranes of the mouth are moist. Neck is supple. There is no elevated jugular venous pressure. No carotid bruit is heard. HEART EXAMINATION: Heart S1, S2 normal. No murmur or gallop heard. CHEST EXAMINATION: Lungs are clear to auscultation and precussion. No chest wall tenderness is noted on palpation or with deep breathing. ABDOMEN: Soft, nontender. Bowel sounds are heard. No organomegaly noted. EXTREMITIES: 2+ peripheral pulses with no evidence of peripheral edema and no calf tenderness noted]. NEUROLOGIC [patient is awake, alert and oriented 3 .] . Results 09/30/18 06:07 09/29/18 07:17 CBC 09/30/18 Range/Units 06:07 WBC 3.4 L (3.8-10.6) k/uL RBC 4.43 (4.30-5.90) m/uL Hgb 13.3 (13.0-17.5) gm/dL Hct 40.1 (39.0-53.0) % Plt Count 122 L (150-450) k/uL Current Medications Generic Name Dose Route Start Last Admin Trade Name Freq PRN Reason Stop Dose Admin Acetaminophen 650 mg 09/28/18 22:47 09/29/18 05:22 Tylenol Tab PO 650 mg Q6HR PRN Administration Fever and/ or Pain Aspirin 325 mg 09/29/18 09:00 09/30/18 08:46 Aspirin PO 325 mg DAILY [facility] Administration Famotidine 20 mg 09/29/18 15:00 09/30/18 08:46 Pepcid IV 20 mg Q12HR [facility] Administration Heparin Sodium (Porcine) 5,000 unit 09/29/18 15:00 09/30/18 08:46 Heparin SQ 5,000 unit Q12HR [facility] Administration Diltiazem HCl 50 mg/ Sodium 50 mls @ 5 mls/hr 09/28/18 05:30 09/30/18 01:53 Chloride IV Not Given .Q10H [facility] 5 MG/HR Sodium Chloride 1,000 mls @ 100 mls/hr 09/28/18 07:30 09/30/18 02:01 Saline 0.9% IV Not Given .Q10H [facility] Nitroglycerin 0.4 mg 09/28/18 06:56 Nitrostat SUBLINGUAL Q5M PRN Chest Pain Oseltamivir Phosphate 75 mg 09/29/18 11:30 09/30/18 08:46 Tamiflu PO 10/03/18 09:01 75 mg Q12HR [facility] Administration Intake and Output 01/12/1309/30/18 09/30/18 22:59 06:59 14:59 Intake Total 1680 1000 Balance 1680 1000 Intake: Intake, IV Titration 800 1000 Amount Sodium Chloride 0.9% 1, 800 1000 000 ml @ 100 mls/hr IV . Q10H [facility] Rx#:[id number] Oral 880 Other: Voiding Method Toilet Toilet # Voids 1 3 Weight 94.5 kg 09/30/18 06:07 09/29/18 07:17 EKG Interpretations (text) Initial EKG showed atrial fibrillation with rapid ventricular response. Subsequent EKG shows a normal sinus rhythm with no acute changes. Assessment and Plan Plan: Assessment and plan #1 symptoms of productive cough evidence of influenza A #2 atrial fibrillation with rapid ventricular response, paroxysmal, patient currently in normal sinus rhythm #3 acute kidney injury likely secondary to dehydration, normalized. #4 hypothyroidism, tsh 8.5 #5 abnormal troponins, likely secondary to atrial fibrillation with rapid ventricular response. Plan Echocardiogram with Doppler study was performed which revealed a normal left ventricular systolic function. Patient has been educated regarding anticoagulation for stroke prevention. We will start the patient on Eliquis and check regarding coverage. Discontinue IV Cardizem. Further recommendations to follow. DNP note has been reviewed, I agree with a documented findings and plan of care. Patient was seen and examined. <Davion Sainz - Last Filed: 09/30/18 13:53> Physical Exam Vitals: Vital Signs Temp Pulse Resp BP Pulse Ox 09/30/18 08:00 98.6 F 70 15 123/74 92 L 09/30/18 04:45 64 15 106/55 96 09/30/18 01:15 98.1 F 69 16 135/73 94 L 09/29/18 21:30 98 09/29/18 21:20 98.5 F 70 17 118/78 96 09/29/18 16:00 98.4 F 69 14 124/76 94 L Intake and Output 09/29/18 09/30/18 09/30/18 22:59 06:59 14:59 Intake Total 1680 1000 430 Balance 1680 1000 430 Intake: Intake, IV Titration 800 1000 Amount Sodium Chloride 0.9% 1, 800 1000 000 ml @ 100 mls/hr IV . Q10H [facility] Rx#:[id number] Oral 880 430 Other: Voiding Method Toilet Toilet Toilet # Voids 1 3 2 Weight 94.5 kg Results 09/30/18 06:07 09/29/18 07:17 CBC 09/30/18 Range/Units 06:07 WBC 3.4 L (3.8-10.6) k/uL RBC 4.43 (4.30-5.90) m/uL Hgb 13.3 (13.0-17.5) gm/dL Hct 40.1 (39.0-53.0) % Plt Count 122 L (150-450) k/uL Current Medications Generic Name Dose Route Start Last Admin Trade Name Freq PRN Reason Stop Dose Admin Acetaminophen 650 mg 09/28/18 22:47 09/29/18 05:22 Tylenol Tab PO 650 mg Q6HR PRN Administration Fever and/ or Pain Apixaban 5 mg 09/30/18 10:30 Eliquis PO BID [facility] Aspirin 81 mg 10/01/18 09:00 Aspirin PO DAILY [facility] Famotidine 20 mg 09/29/18 15:00 09/30/18 08:46 Pepcid IV 20 mg Q12HR [facility] Administration Sodium Chloride 1,000 mls @ 100 mls/hr 09/28/18 07:30 09/30/18 02:01 Saline 0.9% IV Not Given .Q10H [facility] Nitroglycerin 0.4 mg 09/28/18 06:56 Nitrostat SUBLINGUAL Q5M PRN Chest Pain Oseltamivir Phosphate 75 mg 09/29/18 11:30 09/30/18 08:46 Tamiflu PO 10/03/18 09:01 75 mg Q12HR [facility] Administration Intake and Output 09/29/18 09/30/18 09/30/18 22:59 06:59 14:59 Intake Total 1680 1000 430 Balance 1680 1000 430 Intake: Intake, IV Titration 800 1000 Amount Sodium Chloride 0.9% 1, 800 1000 000 ml @ 100 mls/hr IV . Q10H [facility] Rx#:[id number] Oral 880 430 Other: Voiding Method Toilet Toilet Toilet # Voids 1 3 2 Weight 94.5 kg 09/30/18 06:07 09/29/18 07:17
[2018-09-30] MEDS ORDERED: APIXABAN 5 MG TAB PO SCH (10:30)
[2018-09-30 10:59] VITALS: PULSE 70; RESP 18
--- NOTE | 2018-09-30 13:53 | P.CRDCN ---
History of Present Illness History of present illness: Patient reviewed and examined. Admitted with flulike symptoms and currently is in A. fib with RVR History of atrial fibrillation GRECIA VASC or seems to be 0 Preserved LV size and systolic function Normal blood pressure Normal Troponins in the setting of influenza Will follow in the office as an outpatient Past Medical History Past Medical History: No Reported History Additional Past Medical History / Comment(s): palpatations, past kideny stones, gout History of Any Multi-Drug Resistant Organisms: None Reported Past Surgical History: Orthopedic Surgery Additional Past Surgical History / Comment(s): rt knee arthroscopy, colonoscopy Past Anesthesia/Blood Transfusion Reactions: Motion Sickness Additional Past Anesthesia/Blood Transfusion Reaction / Comment(s): pt stated has never recieved any blood" Smoking Status: Never smoker Additional Past Alcohol Use History / Comment(s): Patient has no history of tobacco use. He denies any marijuana, street drug or alcohol use. He lives at home with his . He is retired [employer]. - Past Family History Mother Family Medical History: Diabetes Mellitus Father Additional Family Medical History / Comment(s): from black lung disease Medications and Allergies Home Medications Medication Instructions Recorded Confirmed Type Aspirin EC [Ecotrin Low Dose] 81 mg PO DAILY 09/28/18 09/28/18 History Aspirin EC [Ecotrin] 650 mg PO DAILY PRN 09/28/18 09/28/18 History Allergies Allergy/AdvReac Type Severity Reaction Status Date / Time bee venom protein (honey bee) Allergy Swelling Verified 09/28/18 07:04 Physical Exam Vitals: Vital Signs Temp Pulse Resp BP Pulse Ox 09/30/18 08:00 98.6 F 70 15 123/74 92 L 09/30/18 04:45 64 15 106/55 96 09/30/18 01:15 98.1 F 69 16 135/73 94 L 09/29/18 21:30 98 09/29/18 21:20 98.5 F 70 17 118/78 96 09/29/18 16:00 98.4 F 69 14 124/76 94 L Intake and Output 09/29/18 09/30/18 09/30/18 22:59 06:59 14:59 Intake Total 1680 1000 430 Balance 1680 1000 430 Intake: Intake, IV Titration 800 1000 Amount Sodium Chloride 0.9% 1, 800 1000 000 ml @ 100 mls/hr IV . Q10H MISSAEL Rx#:[id number] Oral 880 430 Other: Voiding Method Toilet Toilet Toilet # Voids 1 3 2 Weight 94.5 kg Results 09/30/18 06:07 09/29/18 07:17 CBC 09/30/18 Range/Units 06:07 WBC 3.4 L (3.8-10.6) k/uL RBC 4.43 (4.30-5.90) m/uL Hgb 13.3 (13.0-17.5) gm/dL Hct 40.1 (39.0-53.0) % Plt Count 122 L (150-450) k/uL Current Medications Generic Name Dose Route Start Last Admin Trade Name Freq PRN Reason Stop Dose Admin Acetaminophen 650 mg 09/28/18 22:47 09/29/18 05:22 Tylenol Tab PO 650 mg Q6HR PRN Administration Fever and/ or Pain Apixaban 5 mg 09/30/18 10:30 Eliquis PO BID [facility] Aspirin 81 mg 10/01/18 09:00 Aspirin PO DAILY [facility] Famotidine 20 mg 09/29/18 15:00 09/30/18 08:46 Pepcid IV 20 mg Q12HR MISSAEL Administration Sodium Chloride 1,000 mls @ 100 mls/hr 09/28/18 07:30 09/30/18 02:01 Saline 0.9% IV Not Given .Q10H [facility] Nitroglycerin 0.4 mg 09/28/18 06:56 Nitrostat SUBLINGUAL Q5M PRN Chest Pain Oseltamivir Phosphate 75 mg 09/29/18 11:30 09/30/18 08:46 Tamiflu PO 10/03/18 09:01 75 mg Q12HR MISSAEL Administration Intake and Output 09/29/18 09/30/18 09/30/18 22:59 06:59 14:59 Intake Total 1680 1000 430 Balance 1680 1000 430 Intake: Intake, IV Titration 800 1000 Amount Sodium Chloride 0.9% 1, 800 1000 000 ml @ 100 mls/hr IV . Q10H MISSAEL Rx#:[id number] Oral 880 430 Other: Voiding Method Toilet Toilet Toilet # Voids 1 3 2 Weight 94.5 kg 09/30/18 06:07 09/29/18 07:17
[2018-09-30 14:34] LABS: T4, Free (Free Thyroxine) 1.6 ng/dL (0.78-2.19)
[2018-09-30 17:36] VITALS: BP 110/66; TEMP 97.5
--- NOTE | 2018-09-30 19:19 | P.DS ---
Providers Date of admission: 09/28/18 06:56 Attending physician: Ismael Barba Consults: 09/28/18 06:56 Consult Physician Routine Consulting Provider: Latha Carlos Consult Reason/Comments: New-onset atrial fibrillation Do you want consulting provider notified?: Yes 09/28/18 19:35 Consult Physician Routine Consulting Provider: Virgilio Gaston Consult Reason/Comments: positive influenza A Do you want consulting provider notified?: Yes Primary care physician: [facility] Course: diagnoses: Upper respiratory tract infection. Secondary to influenza infection treated on Tamiflu Atrial fibrillation's with a rapid ventricular rate. Evaluated by skilled trades teacher and started on Eliquis Acute kidney injury , resolved abnormal TSH, resolved pre-Syncope/dizziness, mostly related to above. Improved dehydration. related to decreased oral intake and his infection, Improved Hospital course: This is a pleasant 63 years old male with no significant past medical history who presents because of palpitation, patient states that he is having cough with some dark milky phlegm with associated with loss of appetite for the last 4 -5 days. Also he has been feeling dizzy whenever he stands up it's like presyncope and about to fall down due to his lightheadedness. patient influenza test came back positive.patient has been evaluated by ID team and he was started on Tamiflu. On admission his EKG showing atrial fibrillation with rapid ventricular rate at 158 BPM, his CBC was unremarkable however his creatinine was elevated at 1.79,patient has been treated with IV fluids and his creatinine came back to normal at 0.9. Cocoa Powder Mixer Operator recommended to start the patient on Eliquis. No beta blockers neededas his heart rate was controlled in the 70s. After treatment patient showed significant improvement and he was complaining with milder, with little phlegm. No chest pain or dyspnea. His oxygen saturation 95% on room air and his breathing at 18 breaths per minute. rest of vital signs stable. Patient was cleared by cardiology and infectious disease for discharge. Patient was recovered to go home. Problems and management plan was discussed with the patient and he verbalized understanding and acceptance. Patient will be discharged on Tamiflu for 4 more days and Eliquis with free 30 day supply is provided for the patient and was at bedside. Patient is aware of the small call pain and he agrees with it. Patient was found stable and can be discharged home however he needs follow-up as an outpatient. Patient told me he will call and make appointments by himself rather than staff donut for him area physical exam Gen.: Patient alert awake and oriented X 3, NOT IN DISTRESS CVS: s1-s2, RRR, no murmur CHEST:bilateral CTA, no wheezing or crepitation Abdomen: Soft, no tenderness, no distention, positive bowel sounds Extremities: No leg edema or induration Time spent more than 35 minutes Patient Condition at Discharge: Fair Plan - Discharge Summary Discharge Rx Participant: No New Discharge Prescriptions: New Acetaminophen Tab [Tylenol] 650 mg PO Q6HR PRN tab PRN Reason: Fever And/ Or Pain Apixaban [Eliquis] 5 mg PO BID #60 tab Aspirin 81 mg PO DAILY #30 chew Oseltamivir [Tamiflu] 75 mg PO Q12HR #8 cap Continue Aspirin EC [Ecotrin] 650 mg PO DAILY PRN PRN Reason: Pain Aspirin EC [Ecotrin Low Dose] 81 mg PO DAILY Discharge Medication List Aspirin EC [Ecotrin Low Dose] 81 mg PO DAILY 09/28/18 [History] Aspirin EC [Ecotrin] 650 mg PO DAILY PRN 09/28/18 [History] Acetaminophen Tab [Tylenol] 650 mg PO Q6HR PRN tab 09/30/18 [Rx] Apixaban [Eliquis] 5 mg PO BID #60 tab 09/30/18 [Rx] Aspirin 81 mg PO DAILY #30 chew 09/30/18 [Rx] Oseltamivir [Tamiflu] 75 mg PO Q12HR #8 cap 09/30/18 [Rx] Follow up Appointment(s)/Referral(s): Davion Sainz MD [STAFF PHYSICIAN] - 3 Weeks (Office is closed. Plese call to schedule appointment) Mika Das MD [Primary Care Provider] - 1-2 days (Spoke to legal receptionist. Office will call with appointment time) Patient Instructions/Handouts: A-fib (Atrial Fibrillation) (DC), Safe Use of Anticoagulants (DC) Activity/Diet/Wound Care/Special Instructions: Pts copay for eliquis is $25/mo-pt given $10/mo coupon Discharge Disposition: HOME SELF-CARE
[2018-10-01] MEDS ORDERED: ASPIRIN 81 MG PO SCH (09:00)
== END 2018-09-30 19:56 | disposition home or self-care (01) | DRG 194 ==
LOC: EC 05:02 → 3SCARD 06:56
PROVIDERS: ADMIT Hospitalist; ATTEND Hospitalist
DX: J10.1 Influenza due to other identified influenza virus with other respiratory manifestations (principal); J98.11 Atelectasis; N17.9 Acute kidney failure, unspecified; I48.0 Paroxysmal atrial fibrillation; Z79.01 Long term (current) use of anticoagulants; E03.9 Hypothyroidism, unspecified; E86.0 Dehydration; K52.9 Noninfective gastroenteritis and colitis, unspecified; Z83.3 Family history of diabetes mellitus; Z79.82 Long term (current) use of aspirin; R74.8 Abnormal levels of other serum enzymes; Z91.030 Bee allergy status; M10.9 Gout, unspecified; Z87.891 Personal history of nicotine dependence
CPT/HCPCS: 36415; 71045; 80048; 80053; 80061; 82550; 82553; 83735; 84439; 84443; 84484; 85025; 85610; 85730; 87502; 93005; 93306; 96361; 96365; 96366; 96372; 96376; 99291

== ENCOUNTER → 2020-05-06 | Day surgery (SDC) | payer MEDICARE, OTHER ==
[2020-05-02 13:32] VITALS: BMI 28.3
[~2020-05-06] MED LIST: SODIUM CHLORIDE 0.9% 1,000 ML IV SCH; SODIUM CHLORIDE 0.9% 500 ML 500 ML IV ONE
[2020-05-06 14:30] VITALS: BP 146/70; PULSE 71; RESP 16; TEMP 98
== END ==
LOC: CATHEP 13:54
PROVIDERS: ATTEND Internal Medicine Clinical Cardiac Electrophysiology
DX: R55 Syncope and collapse (principal); Z53.8 Procedure and treatment not carried out for other reasons

== ENCOUNTER → 2020-05-09 | Day surgery (SDC) | payer MEDICARE, OTHER ==
[2020-05-07 14:11] VITALS: BMI 28.1
[~2020-05-09] MED LIST changes: +LIDOCAINE 1% INJ 10MG/ML (20 ML MDV) SQ ONE; +MIDAZOLAM 2 MG/2 ML VIAL IV ONE; -SODIUM CHLORIDE 0.9% 500 ML 500 ML IV ONE; +ceFAZolin 1,000 MG in SODIUM CHLORIDE 0.9% IRRIGATIO 250 ML IRRIGATION ONE
[2020-05-09 06:24] VITALS: TEMP 97.6
[2020-05-09 09:10] VITALS: RESP 16
[2020-05-09 09:13] VITALS: BP 155/82; PULSE 55
--- NOTE | 2020-06-04 17:52 | P.PCN ---
Preoperative Diagnosis: Loop monitor implant Primary physicians: Technical Adjuster: Dr. Sainz Indication: Patient was brought to the EP lab in a fasting state. Written informed consent was obtained prior to the procedure. The left pectoral area was prepped and draped per protocol. Intravenous antibiotic was administered preoperatively. A subcutaneous Loop monitor was implanted successfully and the wound was closed per protocol. The device was programmed to detect significant aiden- arrhythmic and tachy-arrhythmic events, per protocol. Device and programming details: AF management Patient underwent EP procedure under conscious sedation/moderate sedation, monitoring of the level of consciousness and physiologic parameters including but not limited to vital signs and oxygenation. Patient tolerated the procedure well without any acute complications. Start time: 0725 Stop time: 0752
== END ==
LOC: CATHEP 05:53
PROVIDERS: ATTEND Internal Medicine Clinical Cardiac Electrophysiology
DX: I48.0 Paroxysmal atrial fibrillation (principal); I10 Essential (primary) hypertension; E78.5 Hyperlipidemia, unspecified; R06.02 Shortness of breath; R07.9 Chest pain, unspecified; Z79.82 Long term (current) use of aspirin; Z79.899 Other long term (current) drug therapy; M25.519 Pain in unspecified shoulder
CPT/HCPCS: 33285; C1764; J2250; J0690; J2001

== ENCOUNTER 2022-04-06 09:11 | Day surgery (SDC) | payer MEDICARE, OTHER ==
[2022-04-01 16:25] VITALS: BMI 28.8
[~2022-04-06 09:11] MED LIST changes: +HYDROmorphone 0.5 MG/0.5 ML SYRINGE IVP PRN; +LACTATED RINGERS 1,000 ML IV SCH; -LIDOCAINE 1% INJ 10MG/ML (20 ML MDV) SQ ONE; -MIDAZOLAM 2 MG/2 ML VIAL IV ONE; +MIDAZOLAM 2 MG/2 ML VIAL IV PRN; +ONDANSETRON 4 MG/2 ML VIAL IVP ONE; -SODIUM CHLORIDE 0.9% 1,000 ML IV SCH; -ceFAZolin 1,000 MG in SODIUM CHLORIDE 0.9% IRRIGATIO 250 ML IRRIGATION ONE
[2022-04-06] MEDS ORDERED: SODIUM CHLORIDE 0.9% 1,000 ML IV ONE (09:30)
[2022-04-06] MEDS ORDERED: SUCCINYLCHOLINE CHLORIDE 100 MG/5 ML SYR IV ONE (11:15)
[2022-04-06] MEDS ORDERED: PROPOFOL 10 MG/ML 20 ML VIAL IV ONE (11:15)
[2022-04-06] MEDS ORDERED: WATER FOR INJECTION, STERILE 10 ML VIAL IV ONE (11:15)
[2022-04-06] MEDS ORDERED: ISOPROTERENOL 200 MCG/ML 5 ML AMP IV ONE (11:15)
[2022-04-06] MEDS ORDERED: MIDAZOLAM 2 MG/2 ML VIAL ONE (11:15)
[2022-04-06] MEDS ORDERED: fentaNYL (PF) 50 MCG/ML 2 ML AMP ONE (11:15)
[2022-04-06] MEDS ORDERED: HEPARIN SODIUM,PORCINE 10,000 UNIT/ML 1 ML VIAL ONE (11:15)
[2022-04-06] MEDS ORDERED: LIDOCAINE 2% INJ 20 MG/ML (2 ML VIAL) ONE (11:15)
--- NOTE | 2022-04-06 11:31 | P.HPCAR ---
History of Present Illness This is Dr. aSinz dictating an H/P on this patient The patient was interviewed and examined IMPRESSION / ASSESSMENT: Paroxysmal atrial fibrillation RVR Exercise-induced atrial fibrillation documented on loop monitor The leads of fatigue and shortness of breath at that time Hypertension Dyslipidemia PLAN: Proceed with pulmonary vein isolation for management of paroxysmal symptomatic atrial fibrillation Continue ELIQUIS HPI Patient has recurrent episodes of A. fib with RVR associated with fatigue and shortness of breath His rates are quite rapid at that time When he is in sinus rhythm he has no symptoms With the last one week he denies any fever chills cough No chest pain dizziness loss of consciousness or breathing trouble ROS: No fever chills or rigors, no cough, phlegm or expectoration, no nausea, vomiting or diarrhea, no hematuria, dysuria, no musculoskeletal complaints, no strokes or seizures, no skin lesions. EXAMINATION: Afebrile 98.2F pulse rate in the 50s blood pressure 141/72 mmHg A heart sounds normal S1 normal S2 no rub no gallop Normal breath sounds no rhonchi no crackles No JVD no hepatojugular reflux Soft abdomen No lower extremity edema REVIEW OF LABS, ECG & MEDICAL DATA Medications include ELIQUIS 5 g twice daily, losartan 25 mg daily, rosuvastatin 10 mg daily Preserved LV systolic function Carolyn Physical Exam Vitals: Vital Signs Temp Pulse BP Pulse Ox 04/06/22 09:38 98.2 F 53 L 141/72 97 Intake and Output 04/05/22 04/06/22 04/06/22 22:59 06:59 14:59 Other: Weight 94.4 kg Past Medical History Past Medical History: No Reported History Additional Past Medical History / Comment(s): See Dr Sainz H&P, past kidney stones, hx gout History of Any Multi-Drug Resistant Organisms: None Reported Past Surgical History: Orthopedic Surgery Additional Past Surgical History / Comment(s): rt knee arthroscopy, colonoscopy, LOOP RECORDER Past Anesthesia/Blood Transfusion Reactions: No Reported Reaction, Motion Sickness Additional Past Anesthesia/Blood Transfusion Reaction / Comment(s): pt stated has never recieved any blood Smoking Status: Never smoker - Past Family History Mother Family Medical History: Diabetes Mellitus Father Additional Family Medical History / Comment(s): from black lung disease Physical Examination Vital Signs Temp Pulse BP Pulse Ox 04/06/22 09:38 98.2 F 53 L 141/72 97 Intake and Output 04/05/22 04/06/22 04/06/22 22:59 06:59 14:59 Other: Weight 94.4 kg Results Current Medications Generic Name Dose Route Start Last Admin Trade Name Freq PRN Reason Stop Dose Admin Hydromorphone HCl 0.5 mg 04/06/22 07:00 Hydromorphone 0.5 Mg/0.5 Ml Syringe IVP 04/06/22 23:00 Q5M PRN Phase 1 or 2 - Pain Control Sodium Chloride 1,000 mls @ 50 mls/hr 04/06/22 05:47 Saline 0.9% IV 05/06/22 05:48 .Q20H MISSAEL Lactated Ringer's 1,000 mls @ 20 mls/hr 04/06/22 05:47 Lactated Ringers IV 05/06/22 05:48 .Q24H MISSAEL Midazolam HCl 2 mg 04/06/22 05:47 Midazolam 2 Mg/2 Ml Vial IV 04/07/22 05:48 ONCE PRN Pre-Op Anxiety Intake and Output 04/05/22 04/06/22 04/06/22 22:59 06:59 14:59 Other: Weight 94.4 kg Patient Weight 04/07/22 06:59 Weight 94.4 kg
[2022-04-06] MEDS ORDERED: LIDOCAINE 1% INJ 10MG/ML (20 ML MDV) SQ ONE (11:58)
[2022-04-06] MEDS ORDERED: ACETAMINOPHEN TAB 325 MG TAB PO PRN (13:52)
--- NOTE | 2022-04-06 14:05 | P.EPPROC ---
- EP Procedure Note Electrophysiology Procedure Note: PROCEDURE A. fib ablation/PVI DIAGNOSIS Paroxysmal Atrial fibrillation, symptomatic, refractory to therapy RESULT No left atrial appendage mass seen on intracardiac echo, normal LV function Successful A. fib ablation/pulmonary vein isolation of all veins using cryo- ablation Complete entrance block in all 4 veins confirmed No evidence for phrenic nerve injury, no phrenic nerve stimulation within the right superior pulmonary vein Esophageal deflection YES, left-sided esophagus PROCEDURE DETAILS Patient was brought to the EP lab in a fasting state after obtaining written informed consent. Procedure performed under general anesthesia Esophagus was intubated. Esophageal temperature monitoring with circa catheter. Esophageal deflection with an endoscope to avoid hypothermia of the esophagus. After initial muscle relaxant use, muscle relaxants were not given thereafter in order to assess phrenic nerve during procedure. Patient prepped and draped as per protocol Cryo ablation-set up with standard preparation of the cryoablation tools done. Femoral Venous access obtained on the right and left groins and sheaths placed Diagnostic catheters for the high right atrium, phrenic nerve stimulation and pacing, His bundle, coronary sinus placed Intracardiac echo catheter placed. Long sheath placed in the right atrium Left and right transseptal catheterization performed under intracardiac echo guidance. Intravenous heparin with aCT above 300 Later, catheter positioning and balloon positioning in the left atrium and pulmonary veins, under intracardiac echo guidance Diagnostic EP study with coronary sinus pacing and recording Baseline measurements: Sinus cycle length 835 ms, MT interval 151, QRS 101, QT 416 AH 78 and HV 41 Sinus node recovery times at 605 100 ms were 13-1 and 1363 ms AV node Wenckebach block less than 310 ms Transseptal catheterization performed RA pressure 18/13/15 LA pressure 15/4/9 Transseptal catheterization performed with standard sheath. The cryoablation sheath was then placed with an over the wire exchange without any acute complications. The cryoablation balloon was placed in the office of each pulmonary vein and all 4 pulmonary veins were isolated. IV dye was injected to confirm occlusion. Goal: achieve complete occlusion of the pulmonary vein, achieve -30 degrees C at 30 seconds and achieve -40 degrees C at 60 seconds and a time to effect of less than 60 seconds. If not, the balloon was repositioned to obtain this result After completion of Cryoblation with durations from 180-240 seconds, entrance block was confirmed with the Attain circular catheter in a roving fashion around the antrum of the pulmonary veins Phrenic nerve pacing was performed from the SVC, right innominate vein area and diaphragm voltage was monitored. Diaphragmatic contractions were also monitored manually for strength of contraction. At the end of the procedure the Achieve catheter was once again used to check for entrance block Phrenic nerve stimulation was performed to confirm diaphragmatic stimulation the end of the procedure Cine fluoroscopy was performed at the very end of the procedure to confirm movement of both diaphragms with inspiration and expiration At the end of the procedure the patient was extubated Venous sheaths were removed and hemostasis assured with a closure device PROCEDURES PERFORMED Diagnostic EP study CS pacing and recording Left and right transseptal catheterization Catheter the mapping of the tachycardia Intracardiac echocardiography Pulmonary vein isolation with transseptal and comprehensive EPS, 34857 Drug infusion, +[id number]
[2022-04-06] MEDS ORDERED: HEPARIN SOD,PORK IN 0.45% NACL 25,000 UNIT in 0.45% NACL 1 250ML.BAG IV ONE (14:07)
--- NOTE | 2022-04-06 14:07 | P.PRLE ---
RE: Manan Domingo Dear Lavon Mr. domingo has paroxysmal atrial fibrillation, symptomatic and he underwent successful pulmonary vein isolation today He will continue anticoagulation and will continue to follow with you Thank you for entrusting me with the care of the patient Warm regards Sincerely Davion Sainz
[2022-04-06] MEDS ORDERED: IOPAMIDOL-370 100ML BTL INJ ONE (14:08)
--- NOTE | 2022-04-06 14:24 | P.EPPROC ---
- EP Procedure Note Electrophysiology Procedure Note: Left atrial septal ablation After isolation of the right inferior in the right superior pulmonary veins, the left atrial septum was isolated The upper branch of the right inferior pulmonary vein was cannulated and counterclockwise torque was provided Cryoablation was performed along the posterior septum Next the lateral branch of the left superior pulmonary vein was cannulated and counterclockwise broke was provided Cryoablation was performed along the posterior septum
[2022-04-06] MEDS: ACETAMINOPHEN IV (For NPO) 1,000 MG in EMPTY BAG 1 BAG IVPB ONE ×2 (14:45→15:00)
[2022-04-06] MEDS: SODIUM CHLORIDE 0.9% 1,000 ML IV SCH (15:40)
[2022-04-06] MEDS: APIXABAN 5 MG TAB PO SCH (20:46)
[2022-04-06] MEDS ORDERED: LOSARTAN 25 MG TAB PO SCH (21:00)
[2022-04-06] MEDS ORDERED: ATORVASTATIN 20 MG TAB PO SCH (21:00)
[2022-04-07] MEDS: SODIUM CHLORIDE 0.9% 1,000 ML IV SCH (03:32)
[2022-04-07 07:27] VITALS: BP 139/79; PULSE 73; RESP 16; TEMP 98.1
[2022-04-07] MEDS: APIXABAN 5 MG TAB PO SCH (07:39)
--- NOTE | 2022-04-07 16:45 | P.DS ---
Providers Attending physician: Davion Sainz Primary care physician: [facility] Course: Patient is doing well He is resting comfortably in his bed He is unrelated to the bathroom He has a sore throat Pleuritic chest discomfort only when he takes a very deep breath, right at the e nd of the inspiration On examination his vitals are stable blood pressure is normal Heart sounds S1 and S2 are normal no rub or gallop no murmurs Lungs no rhonchi no crackles Abdomen soft Groins of healed well no hematoma Impression paroxysmal atrial fibrillation Status post PVI Plan Discharge home today continue ELIQUIS follow-up with Dr. Sainz in 2 weeks Plan - Discharge Summary Discharge Rx Participant: No New Discharge Prescriptions: No Action Losartan [Cozaar] 25 mg PO HS Cholecalciferol [Vitamin D3 (25 Mcg = 1000 Iu)] 2,000 unit PO HS RX: Rosuvastatin Calcium 10 mg PO HS Apixaban [Eliquis] 5 mg PO BID Ascorbic Acid [Vitamin C] 500 mg PO DAILY RX: Zinc 50 mg PO DAILY Discharge Medication List Cholecalciferol [Vitamin D3 (25 Mcg = 1000 Iu)] 2,000 unit PO HS 05/02/20 [History] Losartan [Cozaar] 25 mg PO HS 05/02/20 [History] RX: Rosuvastatin Calcium 10 mg PO HS 05/02/20 [History] Apixaban [Eliquis] 5 mg PO BID 04/01/22 [History] Ascorbic Acid [Vitamin C] 500 mg PO DAILY 04/01/22 [History] RX: Zinc 50 mg PO DAILY 04/01/22 [History] Follow up Appointment(s)/Referral(s): Davion Sainz MD [STAFF PHYSICIAN] - 04/16/22 1:00 pm () Patient Instructions/Handouts: Electrophysiology Study (GEN) Activity/Diet/Wound Care/Special Instructions: Post EP study - Ablation instructions 1. Keep access sites dry for 2 days. 2. No heavy lifting or straining for 2 days. 3. Avoid bending the hips repeatedly for 2 days. 4. You may go up and down stairs slowly Call if the following is noted 1. Bleeding, increasing swelling or pain at the access sites. 2. Increasing chest discomfort, especially upon taking a deep breath. 3. Increasing shortness of breath, at rest or with exertion. 4. Undue cough / phlegm 5. Difficulty or pain while swallowing. 6. Pain or change in color in the extremities. 7. Fever, chills, rigors. 8. Increasing headache or neurologic symptoms. 9. Dizziness, fainting, palpitations Continue ELIQUIS Discharge Disposition: HOME SELF-CARE
== END 2022-04-07 10:40 | disposition home or self-care (01) ==
LOC: CATHEP 09:11 → 6NMEDSUR 13:56 → CATHEP 04-07 10:40
PROVIDERS: ATTEND Internal Medicine Clinical Cardiac Electrophysiology
DX: I48.0 Paroxysmal atrial fibrillation (principal); I10 Essential (primary) hypertension; E78.5 Hyperlipidemia, unspecified; Z87.442 Personal history of urinary calculi; Z20.822 Contact with and (suspected) exposure to COVID-19; J02.9 Acute pharyngitis, unspecified; R07.89 Other chest pain; Z79.899 Other long term (current) drug therapy; Z79.01 Long term (current) use of anticoagulants
CPT/HCPCS: 93623; 93656; 87635; C1894 ×2; C1769 ×5; C1760; C1730 ×2; C1759; C1733; C1766; J2250; J1644 ×2; J2001 ×2; J3010; J0131; J0330; J2704; Q9967; 93609; 93662

== ENCOUNTER 2024-04-17 05:40 | Day surgery (SDC) | payer MEDICARE, OTHER ==
[2024-04-13 09:39] VITALS: BMI 28.2
[2024-04-17] MEDS ORDERED: SODIUM CHLORIDE 0.9% 1,000 ML IV SCH (05:53)
[2024-04-17] MEDS: IV FLUID CONTINUATION 1,000 ML IV ONE (06:25)
[2024-04-17] MEDS: SODIUM CHLORIDE 0.9% 500 ML DEHP FREE BAG IV STA (06:25)
[2024-04-17 06:29] VITALS: BP 154/72; PULSE 56; RESP 16; TEMP 97.8
[2024-04-17] MEDS: ceFAZolin 1,000 MG VIAL IV ONE (07:31)
[2024-04-17] MEDS: LIDOCAINE 1% INJ 10MG/ML (20 ML MDV) SQ ONE (07:33)
--- NOTE | 2024-04-17 08:01 | P.EPPROC ---
- EP Procedure Note Electrophysiology Procedure Note: Procedure: Loop explant under sedation and local anesthesia. Diagnosis: Loop monitor at [facility] Patient was brought to the EP lab in a fasting state. Written informed consent was obtained prior to the procedure. The subcutaneous device was successfully explanted under local anesthesia. Preoperative antibiotics were administered. The wound was closed in layers and dressed per protocol. Result: Successful loop monitor explantation.
== END 2024-04-17 08:00 | disposition home or self-care (01) ==
LOC: CATHEP 05:40
PROVIDERS: ATTEND Internal Medicine Clinical Cardiac Electrophysiology
DX: I48.0 Paroxysmal atrial fibrillation (principal); E78.5 Hyperlipidemia, unspecified; I10 Essential (primary) hypertension; Z79.01 Long term (current) use of anticoagulants; Z79.899 Other long term (current) drug therapy
CPT/HCPCS: 33286; J0690; J2001